=== PATIENT | male | born 1990 | race African-American/Black ===

== ENCOUNTER 2021-06-05 17:29 | Emergency (ER) | payer OTHER ==
[~2021-06-05] VITALS: Ht 188 cm; Wt 74.8 kg
[2021-06-05 17:36] VITALS: BP 118/62
== END 2021-06-05 18:12 | disposition home or self-care (01) ==
LOC: ER 17:29
DX: S60.222A Contusion of left hand, initial encounter (principal); X58.XXXA Exposure to other specified factors, initial encounter; Y93.89 Activity, other specified; Y92.89 Other specified places as the place of occurrence of the external cause; Y99.8 Other external cause status